=== PATIENT | male | born 1965 | race Caucasian/White ===

== ENCOUNTER 2016-08-31 09:58 | Emergency (ER) | payer BC ==
[2016-08-31 10:43] VITALS: BP 138/107
--- NOTE | 2016-08-31 12:37 | UC ---
FLU HPI - HPI Summary HPI Summary: 51 YEAR OLD MALE WITH COMPLAINTS OF FEVER, HEADACHE, BODY ACHES, HARSH COUGH FOR 4 - 5 DAYS - History of Current Complaint Chief Complaint: UCRespiratory Stated Complaint: CONGESTION COUGH Time Seen by Provider: 08/31/16 12:08 Hx Obtained From: Patient, Family/[employer] Android Developer - Onset/Duration: Sudden Onset Severity Currently: Moderate Severity Initially: Severe Pain Scale Used: 0-10 Numeric - 7 Associated Signs & Symptoms: Positive: Fever, Myalgia, Cough, Headache. Negative: Sore Throat, Nasal Congestion, Vomiting, Diarrhea Related Hx: Possible Flu/Infectious Exposure - Risk Factors Influenza Risk Factors: Negative - Allergy/Home Medications Allergies/Adverse Reactions: Allergies Allergy/AdvReac Type Severity Reaction Status Date / Time No Known Allergies Allergy Verified 08/31/16 10:43 PMH/Surg Hx/FS Hx/Imm Hx Previously Healthy: Yes Endocrine History Of: Denies: Diabetes Cardiovascular History Of: Denies: Cardiac Disorders Respiratory History Of: Denies: COPD - Surgical History Surgical History: Yes Surgery Procedure, Year, and Place: C5 C6 Fracture/Plates and Screws, ~[address] [place] [address] - Family History Known Family History: Positive: Other - No FMH MRSA Negative: Hypertension, Diabetes - Social History Alcohol Use: Occasionally Substance Use Type: None Smoking Status (MU): Never Smoked Tobacco Review of Systems Constitutional: Fever, Chills Skin: Negative Eyes: Negative ENT: Sore Throat, Nasal Discharge Respiratory: Cough Cardiovascular: Negative Gastrointestinal: Negative Genitourinary: Negative Motor: Negative Neurovascular: Negative Musculoskeletal: Myalgia Neurological: Headache Psychological: Negative All Other Systems Reviewed And Are Negative: Yes Physical Exam Triage Information Reviewed: Yes Appearance: No Pain Distress, Well-Nourished, Ill-Appearing - MILDLY Vital Signs: Initial Vital Signs Temp 97.0 F 08/31/16 10:41 Pulse 67 08/31/16 10:41 Resp 16 08/31/16 10:41 BP 138/107 08/31/16 10:41 Pulse Ox 99 08/31/16 10:41 Vital Signs Reviewed: Yes Eyes: Positive: Conjunctiva Clear. Negative: Discharge ENT: Positive: Pharynx normal, Nasal congestion - MILD. Negative: Nasal drainage, Tonsillar swelling, Tonsillar exudate Neck: Positive: Supple, Nontender Respiratory: Positive: Lungs clear, Normal breath sounds Cardiovascular: Positive: RRR, No Murmur Musculoskeletal: Positive: Strength Intact, ROM Intact Neurological: Positive: Alert, Muscle Tone Normal Psychological: Positive: Normal Response To Family - HERE WITH WHO IS ILL WITH SAME THING, Age Appropriate Behavior Skin: Negative: rashes, breakdown Flu Course/Dx - Course Course Of Treatment: POSITIVE RAPID INFLUENZA - Differential Dx/Diagnosis Differential Diagnosis/HQI/PQRI: Influenza Provider Diagnoses: INFLUENZA Discharge - Discharge Plan Condition: Stable Disposition: HOME Prescriptions: Benzonatate CAP* [Tessalon CAP*] 100 mg PO TID #12 cap Patient Education Materials: Influenza (ED) Forms: *Work Release Referrals: [facility] [Outside] No Primary Care Phys,NOPCP [Primary Care Provider] -
== END 2016-08-31 12:43 | disposition home or self-care (01) ==
LOC: UCCORT 09:58
DX: J11.1 Influenza due to unidentified influenza virus with other respiratory manifestations (principal)
CPT/HCPCS: 87502; 99212; G0463

== ENCOUNTER 2019-06-23 11:53 | Emergency (ER) | payer BC ==
[2019-06-23 12:09] VITALS: BP 140/93
--- NOTE | 2019-06-23 12:18 | UC ---
Respiratory Complaint HPI - HPI Summary HPI Summary: 54 year old male presents with 4 day sx of fever, headache, intermittent nausea with three episodes of vomiting, three episodes of diarrhea, body aches, PND, mostly productive cough, chills and sweats. Notes decreased appetite and states he has lost fourteen pounds in four days. No abdominal pain. Has mainly been drinking fluids. Denies chest pains nor sob. He took Naproxen this morning. - History of Current Complaint Chief Complaint: UCRespiratory Stated Complaint: COUGH, FEVER Time Seen by Provider: 06/23/19 12:07 Pain Intensity: 6 - Allergies/Home Medications Allergies/Adverse Reactions: Allergies Allergy/AdvReac Type Severity Reaction Status Date / Time No Known Allergies Allergy Verified 06/23/19 12:04 Home Medications: Home Medications Naproxen Sodium 440 mg PO Q12H PRN 06/23/19 [History Confirmed 06/23/19] PMH/Surg Hx/FS Hx/Imm Hx Previously Healthy: Yes - Surgical History Surgical History: Yes Surgery Procedure, Year, and Place: C5 C6 Fracture[facility]Plates [facility] Screws, ~[facility] - Family History Known Family History: Positive: Other - No FMH MRSA Negative: Hypertension, Diabetes - Social History Occupation: Employed Full-time - warehouse associate driver Alcohol Use: Occasionally Substance Use Type: None Smoking Status (MU): Never Smoked Tobacco Review of Systems All Other Systems Reviewed And Are Negative: Yes Constitutional: Positive: Fever, Chills, Fatigue Skin: Negative: Rash, Bruising Eyes: Positive: Negative ENT: Positive: Epistaxis - when he blows his nose, Nasal Discharge, Sinus Congestion, Sinus Pain/Tenderness. Negative: Sore Throat, Ear Ache Respiratory: Positive: Cough - intermittently productive. Negative: Shortness Of Breath Cardiovascular: Negative: Palpitations, Chest Pain Gastrointestinal: Positive: Vomiting - three episodes, last episode this morning., Diarrhea - three episodes, Nausea Genitourinary: Positive: Negative - notes urine has been dark Motor: Positive: Negative Neurovascular: Positive: Negative Musculoskeletal: Positive: Myalgia - general Neurological: Positive: Negative Psychological: Positive: Negative Is Patient Immunocompromised?: No Physical Exam Triage Information Reviewed: Yes Completion Of Physical Exam Limited Due To: Altered Mental Status Appearance: Well-Appearing, No Pain Distress, Well-Nourished Vital Signs: Initial Vital Signs Temp 98.6 F 06/23/19 12:01 Pulse 68 06/23/19 12:01 Resp 16 06/23/19 12:01 BP 140/93 06/23/19 12:01 Pulse Ox 99 06/23/19 12:01 Vital Signs Reviewed: Yes Eye Exam: Normal ENT: Positive: Normal ENT inspection Neck: Positive: Supple, Nontender, No Lymphadenopathy Respiratory: Positive: Lungs clear, No respiratory distress. Negative: Respiratory distress, Crackles, Rhonchi, Wheezing - decreased breath sounds left upper lobe Cardiovascular: Positive: RRR, No Murmur, Pulses Normal, Brisk Capillary Refill Abdomen Description: Positive: Nontender, Soft. Negative: Distended, Guarding, Peritoneal Signs Musculoskeletal Exam: Normal Neurological Exam: Normal Psychological Exam: Normal Skin Exam: Normal Diagnostics - Radiology No standard instances Radiology Interpretation Completed By: Radiologist Summary of Radiographic Findings: Special Education Curriculum Specialist: Tonio Joseph ([id number]) Media Executive: TREVOR (NUANCE) Report Date: 06/23/2019 13:15:00 Report Status: Final Start of Report Content Patient Name: KRISTEN SHARMA Medical Record#: [id number] Ordering Physician: Alexis Sinclair MD Acct.#: [id number] : 1965 Age: 54 Sex: M Location: [facility] Exam Date: 06/23/19 1228 ADM Status: REG ER Order Information: CHEST PA LAT 2 VWS Accession Number: [id number] CPT: 41757 INDICATION: Cough and fever. Decreased left upper breast sounds COMPARISON: There are no relevant prior studies available for comparison. TECHNIQUE: Dual-energy PA and lateral views of the chest were obtained. FINDINGS: The lungs are clear. There is no pleural effusion. The cardiomediastinal silhouette is within normal limits. The upper abdominal contents are normal. Osseous structures are unremarkable. IMPRESSION: No acute cardiopulmonary process by radiograph <Electronically signed by Tonio Joseph MD in OV> 06/23/19 1311 Dictated By: Tonio Joseph MD Dictated Date/Time: 131 Transcribed Date/Time: 06/23/19 131 Copy to: CC:Ella MORAN; Alexis Sinclair MD Imaging - [facility] Imaging - [facility] Imaging - [facility] [address] [place] [id number] [address] [address] ph [phone]) ph ) ph ([phone]) End of Report Content Respiratory Course/Dx - Course Course Of Treatment: Nausea resolved with Zofran. Tolerated 16 oz of water po without difficulty. - Differential Dx/Diagnosis Differential Diagnosis/HQI/PQRI: Bronchitis, Other - Gastroenteritis Provider Diagnosis: Viral syndrome Discharge ED - Sign-Out/Discharge Documenting (check all that apply): Patient Departure All imaging exams completed and their final reports reviewed: Yes - Discharge Plan Condition: Stable Disposition: HOME Patient Education Materials: Viral Syndrome (ED) Forms: *Work Release Referrals: Ella Kaur PA [Primary Care Provider] - Additional Instructions: Drink plenty of fluids and rest. Take Tylenol or naproxen as needed for fever/ pain. If your fever persists over the next 48 hours, follow-up with your primary care physician. - Billing Disposition and Condition Condition: STABLE Disposition: Home
[2019-06-23] MEDS ORDERED: Ondansetron ODT TAB* 4 MG PO ONE (12:25)
== END 2019-06-23 13:47 | disposition home or self-care (01) ==
LOC: UCCORT 11:53
DX: B34.9 Viral infection, unspecified (principal); M79.10 Myalgia, unspecified site; R11.2 Nausea with vomiting, unspecified; R19.7 Diarrhea, unspecified; R05 Cough; R04.0 Epistaxis; J34.89 Other specified disorders of nose and nasal sinuses; R53.83 Other fatigue
CPT/HCPCS: 71046; 99212; A9270-GY; G0463

== ENCOUNTER 2019-08-20 08:55 | Emergency (ER) | payer BC ==
[2019-08-20 09:23] VITALS: BP 154/110
--- NOTE | 2019-08-20 10:23 | UC ---
Respiratory Complaint HPI - HPI Summary HPI Summary: cough x 5 days cough is productive, with green / yellow sputum worse with deep breathing cough is harsh and nothing is helping + fever, chills, body aches, no sob , - History of Current Complaint Chief Complaint: UCRespiratory Stated Complaint: COUGH HEADACHE CONGESTION Time Seen by Provider: 08/20/19 09:49 Hx Obtained From: Patient Onset/Duration: Gradual Onset, Lasting Days - 5, Still Present Timing: Constant Severity Initially: Moderate Severity Currently: Moderate Pain Intensity: 9 Pain Scale Used: 0-10 Numeric Character: Cough: Productive Aggravating Factors: Exertion, Deep Breaths Alleviating Factors: Nothing Associated Signs And Symptoms: Positive: Fever, Chills, URI, Nasal Congestion. Negative: Dyspnea, Wheezing, Hemoptysis - Allergies/Home Medications Allergies/Adverse Reactions: Allergies Allergy/AdvReac Type Severity Reaction Status Date / Time No Known Allergies Allergy Verified 08/20/19 09:24 Home Medications: Home Medications Ibuprofen TAB* [Motrin TAB* 600 MG] 600 mg PO Q6H PRN 08/20/19 [History Confirmed 08/20/19] guaiFENesin ER TAB [Mucinex*] 600 mg PO BID 08/20/19 [History Confirmed 08/20/19 ] PMH/Surg Hx/FS Hx/Imm Hx Previously Healthy: Yes - Surgical History Surgical History: Yes Surgery Procedure, Year, and Place: C5 C6 Fracture/Plates and Screws, ~2004, [place]. R ankle surg - Family History Known Family History: Positive: Other - No FMH MRSA Negative: Hypertension, Diabetes - Social History Alcohol Use: Occasionally Substance Use Type: None Smoking Status (MU): Never Smoked Tobacco Review of Systems All Other Systems Reviewed And Are Negative: Yes Constitutional: Positive: Fever, Chills, Fatigue Skin: Positive: Negative Eyes: Positive: Negative ENT: Positive: Negative Respiratory: Positive: Cough Cardiovascular: Positive: Negative Is Patient Immunocompromised?: No Physical Exam Triage Information Reviewed: Yes Appearance: Well-Appearing, No Pain Distress, Well-Nourished Vital Signs: Initial Vital Signs Temp 97.4 F 08/20/19 09:19 Pulse 67 08/20/19 09:19 Resp 15 08/20/19 09:19 BP 154/110 08/20/19 09:19 Pulse Ox 97 08/20/19 09:19 Vital Signs Reviewed: Yes Eye Exam: Normal Eyes: Positive: Conjunctiva Clear ENT: Positive: Normal ENT inspection, Hearing grossly normal, Pharynx normal Neck: Positive: Supple, Nontender, No Lymphadenopathy Respiratory: Positive: Crackles, Wheezing. Negative: Decreased breath sounds Cardiovascular: Positive: RRR, No Murmur, Pulses Normal Abdominal Exam: Normal Abdomen Description: Positive: Nontender, Soft. Negative: CVA Tenderness (R), CVA Tenderness (L), Distended, Guarding Respiratory Course/Dx - Differential Dx/Diagnosis Provider Diagnosis: Bronchitis Discharge ED - Sign-Out/Discharge Documenting (check all that apply): Patient Departure All imaging exams completed and their final reports reviewed: No Studies - Discharge Plan Condition: Stable Disposition: HOME Prescriptions: Codeine Phosphate/Guaifenesin [Guaifen-Codeine 100-10 mg/5 ml] 10 ml PO Q8H PRN #120 ml MDD 30 ml per day PRN Reason: Cough DOXYcycline CAP(*) [DOXYcycline 100MG CAP(*)] 100 mg PO BID #20 cap Patient Education Materials: Acute Bronchitis (ED) Referrals: Ella Kaur PA [Primary Care Provider] - If Needed - Billing Disposition and Condition Condition: STABLE Disposition: Home
== END 2019-08-20 10:17 | disposition home or self-care (01) ==
LOC: UCCORT 08:55
DX: J40 Bronchitis, not specified as acute or chronic (principal)
CPT/HCPCS: 99202; G0463